=== PATIENT | female | born 1960 | race Caucasian/White ===

== ENCOUNTER 2020-04-07 05:31 | Day surgery (SDC) | payer OTHER ==
[~2020-04-07] VITALS: Ht 162.6 cm; Wt 57.2 kg
[~2020-04-07 05:31] MED LIST: AMBIEN CR 6.26.25 MG PO; ESTRACE1 MG PO; FLUTICASONE PRO16 GM NASAL; LISINOPRIL10 MG PO; METOPROLOL TART25 MG PO; MOBIC7.5 MG PO; PROAIR HFA8.5 G1 INH; PROMETRIUM200 MG PO; SINGULAIR10 MG PO; SYNTHROID50 MCG PO; XANAX0.5 MG PO; ZYRTEC10 MG PO
[2020-04-07 05:58] LABS: HEMOGLOBIN 13.6 g/dL (12-16); MCH 30.2 pg (26.0-34.0); MCHC 33.2 g/dL (31.0-37.0); MCV 91.1 fL (80.0-100.0); MEAN PLATELET VOLUME 8.7 fL (7.4-10.4); RBC 4.5 10x6/uL (4.00-5.40); WBC 6.9 10x3/uL (4.8-10.8)
[2020-04-07 07:06] VITALS: BP 131/70; Ht 162.6 cm; Wt 57.2 kg
[2020-04-07] MEDS ORDERED: HYDROCODON-ACE1 EAC7 PO (08:08)
--- NOTE | 2020-04-07 10:11 | NUR ---
1000 PT DRESSED DC'D IN WC. WITH
== END 2020-04-07 10:00 | disposition home or self-care (01) ==
LOC: D.OPS 05:31
PROVIDERS: Anesthesiology; ATTEND Surgery
DX: K64.8 Other hemorrhoids (principal); E03.9 Hypothyroidism, unspecified; I10 Essential (primary) hypertension; Z86.73 Personal history of transient ischemic attack (TIA), and cerebral infarction without residual deficits

== ENCOUNTER 2020-04-27 17:20 | Inpatient (IN) | payer OTHER ==
[~2020-04-27] VITALS: Ht 162.6 cm; Wt 57.2 kg
[~2020-04-27 17:20] MED LIST changes: +HYDROCODON-ACE1 EAC7 PO
--- NOTE | 2020-04-27 17:36 | NUR ---
ENETERED ROOM WITH CALL LIGHT ON. PT STATES DOESNT FEEL GOOD AND FEELS LIKE SHE IS GOING TO PASS OUT. DIAPHORETIC. BP 44/30. RAPID RESPONSE CALLED. SEE SHEET
[2020-04-27 18:01] LABS: BASOPHILS 0.1 % (0-2); EOSINOPHILS 0 % (0-7); HEMATOCRIT 26.1 % (36.0-48.0); HEMOGLOBIN 8.5 g/dL (12-16); IMMATURE GRANULOCYTES 0.2 % (0-5); LYMPHOCYTES 11.8 % (15-50); MCH 29.6 pg (26.0-34.0); MCHC 32.6 g/dL (31.0-37.0); MCV 90.9 fL (80.0-100.0); MEAN PLATELET VOLUME 8.4 fL (7.4-10.4); MONOCYTES 5.6 % (2-11); NEUTROPHILS 82.3 % (40-80); PLATELET COUNT 256 10x3/uL (130-400); RBC 2.87 10x6/uL (4.00-5.40); RDW 12.6 % (11.5-14.5); WBC 9.9 10x3/uL (4.8-10.8)
[2020-04-27 18:13] LABS: APTT 26.3 SECONDS (22.8-39.4); INR 1.16 (0.85-1.17); PROTIME 14.8 SECONDS (11.6-15.0)
[2020-04-27 18:26] LABS: ALBUMIN 2.5 g/dL (3.4-5.0); ALKALINE PHOSPHATASE 24 U/L (30-120); ALT (SGPT) 11 U/L (10-68); BILIRUBIN - TOTAL 0.22 mg/dL (0.2-1.3); CREATININE - SERUM 0.6 mg/dL (0.6-1.3); GLUCOSE 127 mg/dL (74-106); PROTEIN - SERUM 4.8 g/dL (6.4-8.2); UREA NITROGEN 16 mg/dL (7-18); eGFR NON AFRICAN AMERICAN > 90 mL/min (90-120)
[2020-04-27 18:42] LABS: CALC OSMOLALITY 278 mosm/kg (275-300); CHLORIDE - SERUM 107 mmol/L (98-107); POTASSIUM - SERUM 3.7 mmol/L (3.5-5.1); SODIUM 138 mmol/L (136-145)
[2020-04-27 18:47] LABS: CALCIUM 6.4 mg/dL (8.5-10.1)
[2020-04-27 20:45] VITALS: BP 108/64
[2020-04-27 23:26] LABS: HEMATOCRIT 24.4 % (36.0-48.0); HEMOGLOBIN 7.9 g/dL (12-16)
[2020-04-28 04:00] VITALS: BP 112/66
--- NOTE | 2020-04-28 05:35 | NUR ---
I have reviewed this patient and I concur with the Shift Assessment completed by the Licensed Practical Nurse today this shift.
--- NOTE | 2020-04-28 07:30 | NUR ---
REC'D IN BED AWAKE AND ALERT. RESP EVEN AND UNLABORED WITH NO DISTRESS NOTED. CAN EXPRESS NEEDS AND WANTS. NO C/O NOTED OR VOICED OF YET THIS SHIFT. ASSESSMENT COMPLETED. C/L IN REACH AT BEDSIDE.
[2020-04-28 10:09] VITALS: BP 144/70
[2020-04-28 11:00] LABS: BASOPHILS 0.1 % (0-2); EOSINOPHILS 0 % (0-7); IMMATURE GRANULOCYTES 0.3 % (0-5); LYMPHOCYTES 9.6 % (15-50); MCH 30.1 pg (26.0-34.0); MCHC 33.3 g/dL (31.0-37.0); MCV 90.4 fL (80.0-100.0); MEAN PLATELET VOLUME 8.3 fL (7.4-10.4); MONOCYTES 6.9 % (2-11); NEUTROPHILS 83.1 % (40-80); PLATELET COUNT 236 10x3/uL (130-400)
[2020-04-28 11:06] LABS: RBC 2.19 10x6/uL (4.00-5.40); WBC 16.1 10x3/uL (4.8-10.8)
[2020-04-28 11:07] LABS: HEMATOCRIT 19.8 % (36.0-48.0); HEMOGLOBIN 6.6 g/dL (12-16)
--- NOTE | 2020-04-28 11:19 | NUR ---
DR. YOST WAS NOTIFIED OF LABS RESULTS OF H/H 6.6/19.8 REC'D ORDERS FOR TO TRANSFUSE TWO UNITS OF PRBCS AND TO GIVE LASIX 20 MG BETWEEN UNITS.
--- NOTE | 2020-04-28 12:30 | NUR ---
PT C/O BLADDER RETENTION AND PAIN PT WAS BLADDER SCAN WITH 999+ ML NOTED. IN AND OUT CATH WITH 1200 ML NOTED. C/L IN REACH AT BEDSIDE.
[2020-04-28 13:36] VITALS: BP 132/71
--- NOTE | 2020-04-28 13:38 | NUR ---
FIRST UNIT OF PRBC STARTED AT THIS TIME VIA RN. NO DISTRESS NOTED. VS WITHIN NORMAL LIMITS. C/L IN REACH AT BEDSIDE.
[2020-04-28 18:41] VITALS: BP 131/69
[2020-04-28 20:00] VITALS: BP 138/66
--- NOTE | 2020-04-29 02:59 | NUR ---
I have reviewed this patient and I concur with the Shift Assessment completed by the Licensed Practical Nurse today this shift.
[2020-04-29 07:05] LABS: HEMATOCRIT 28.1 % (36.0-48.0); HEMOGLOBIN 9.6 g/dL (12-16); LYMPHOCYTES 14.4 % (15-50); MCH 30.1 pg (26.0-34.0); MCHC 34.2 g/dL (31.0-37.0); MCV 88.1 fL (80.0-100.0); MEAN PLATELET VOLUME 8.3 fL (7.4-10.4); NEUTROPHILS 76.4 % (40-80); PLATELET COUNT 198 10x3/uL (130-400); RBC 3.19 10x6/uL (4.00-5.40); RDW 14.4 % (11.5-14.5); WBC 11.1 10x3/uL (4.8-10.8)
--- NOTE | 2020-04-29 07:55 | NUR ---
REC'D IN BED AWAKE AND ALERT. RESP EVEN AND UNLABORED WITH NO DISTRESS NOTED. CAN EXPRESS NEEDS AND WANTS. NO C/O NOTED OR VOICED. ASSESSMENT COMPLETED. C/L IN REACH AT BEDSIDE.
--- NOTE | 2020-04-29 10:12 | NUR ---
MEDICATED WITH ULTRAM PER ORDER D/T RECTUM PAIN. C/L IN REACH AT BEDSIDE.
[2020-04-29 10:13] VITALS: BP 119/61
[2020-04-29 11:07] VITALS: Ht 162.6 cm; Wt 57.2 kg
[2020-04-29] MEDS ORDERED: ULTRAM50 MG PO (13:45)
--- NOTE | 2020-04-29 13:46 | OP ---
PATIENT NAME: MIS BETH MEDICAL RECORD: [id number] :60 LOCATION:D.[facility] Pan0 ADMISSION DATE:04/28/20 SURGEON: PRAVEEN YOST MD DATE OF OPERATION: 04/27/2020 PREOPERATIVE DIAGNOSES: 1. Hemorrhoidal bleeding. 2. Acute blood loss anemia. 3. Hemorrhagic shock. POSTOPERATIVE DIAGNOSES: 1. Hemorrhoidal bleeding. 2. Acute blood loss anemia. 3. Hemorrhagic shock. PROCEDURE: Anal exam under anesthesia with oversew of bleeding vessel. SURGEON: Praveen Yost MD REPORT OF PROCEDURE: The patient was placed in lithotomy position. The perianal region was prepped and draped in sterile fashion. An anoscope was inserted and there was an explosion of blood and clot present. As we suctioned this out, we could see there was some bleeding from the anal tissue, especially on the right side of the patient's anus. Right anteriorly and right posteriorly, there appear to be some bleeding tissue where there were some raw areas on the anus, which was likely from the previous hemorrhoidal banding. I oversewed these 2 areas with [id number] chromics on multiple places until we had resolution of bleeding. We then irrigated out the anus and inspected a few more times and did not see any evidence of any active bleeding. There were no further clots present. There was a small tear on the anterior aspect of the rectum where there was a little bit of bleeding and this was treated with electrocautery and discontinued. We then infused 10 mL of 0.25% Marcaine with epinephrine into the anal region and then packed the anus with Americaine on Gelfoam. COMPLICATIONS: None. CONDITION: Fair. ANESTHESIA: General endotracheal. BLOOD LOSS: 50 mL. TRANSINT:[id number] Voice Confirmation ID: [id number] DOCUMENT ID: [id number] PRAVEEN YOST MD at 1346 CC: [id number] DICTATION DATE: 04/27/201953 STATE AUDITOR: 04/28/20 0211 ADM IN [facility] [address] [place] [address]
--- NOTE | 2020-04-29 16:00 | NUR ---
DC HOME AT THIS TIME IN STABLE CONDITION. IV DC. VOICES UNDERSTANDING OF DC ORDERS. TOOK ALL PERSONAL BELONGINGS WITH HER.
== END 2020-04-29 15:50 | disposition home or self-care (01) | DRG 347 ==
LOC: D.MS 17:20 → OBSVTIME 18:28 → D.MS 04-28 16:49
PROVIDERS: Surgery; ADMIT Surgery; ATTEND Surgery
PROC: 06LY4CC Occlusion of Hemorrhoidal Plexus with Extraluminal Device, Percutaneous Endoscopic Approach (ICD-10-PCS; principal; 2020-04-27 18:49)
DX: K64.9 Unspecified hemorrhoids (principal); R57.8 Other shock; D62 Acute posthemorrhagic anemia; E11.9 Type 2 diabetes mellitus without complications; E03.9 Hypothyroidism, unspecified; G47.00 Insomnia, unspecified; R33.9 Retention of urine, unspecified; Z86.73 Personal history of transient ischemic attack (TIA), and cerebral infarction without residual deficits; Z87.891 Personal history of nicotine dependence

== ENCOUNTER 2020-12-14 16:15 | Outpatient (CLI) | payer OTHER ==
[2020-04-29 11:07] VITALS: BMI 21.6
[~2020-12-14 16:15] MED LIST changes: +ULTRAM50 MG PO
== END 2020-12-14 23:59 | disposition home or self-care (01) ==
LOC: D.MAMMO 16:15
PROVIDERS: ATTEND Family Medicine
DX: Z12.31 Encounter for screening mammogram for malignant neoplasm of breast (principal)